=== PATIENT | male | born 1995 | race American Indian/Alaskan Native ===

== ENCOUNTER 2019-09-18 11:42 | Emergency (ER) | payer SELFPAY ==
[2019-09-18 12:08] VITALS: BP 110/70
--- NOTE | 2019-09-18 20:20 | Emergency Department Report ---
Chief Complaint: Headache Stated Complaint: BAD HEADACHE Time Seen by Provider: 09/18/19 20:13 - HPI History of Present Illness: 24yo M states that he had a headache x 2 days. He states that it resolved nut his job sent him here. - ROS Review of Systems: All systems reviewed and negative. - Exam Vital Signs: Vital Signs 09/18/19 12:08 Temperature 98.8 F Pulse Rate 96 H Respiratory 16 Rate Blood Pressure 110/70 [Right] O2 Sat by Pulse 96 Oximetry reviewed Physical Exam: General-WNL HEENNT-WNL Lungs-WNL Heart-WNL Lungs-WNL Abdomen-WNL MS-WNL Skin- WNL Neuro-WNL Psych-WNL MSE screening note: Focused history and physical exam performed. Due to findings the following was ordered: Pt was informed that his TAVERAS appears to be a general TAVERAS. He was encouraged to take Motrin/Tylenol as needed. F/U with PCP; see ER as needed. Pt was explained that she will be MSE screened out. Patient discussed with doctor:: [facility] Medical Decision Making - Medical Decision Making Pt was informed that his TAVERAS appears to be a general TAVERAS. He was encouraged to take Motrin/Tylenol as needed. F/U with PCP; see ER as needed. Pt was explained that she will be MSE screened out. ED Disposition for MSE Clinical Impression: Headache Disposition: Z-07 MED SCREENING EXAM-LEFT Is pt being admited?: No Does the pt Need Aspirin: No Condition: Stable Additional Instructions: Pt was informed that his TAVERAS appears to be a general TAVERAS. He was encouraged to take Motrin/Tylenol as needed. F/U with PCP; see ER as needed. Pt was explained that she will be MSE screened out. Referrals: PRIMARY CARE, [Primary Care Provider] - 3-5 Days Time of Disposition: 20:22 Print Language: UKRAINIAN
== END 2019-09-18 20:30 | disposition left against medical advice (07) ==
LOC: ED 11:42
DX: R51 Headache (principal)
CPT/HCPCS: 99281